=== PATIENT | female | born 1965 | race Hispanic/Latino ===

== ENCOUNTER 2022-05-25 12:35 | Emergency (ER) | payer OTHER ==
[~2022-05-25] VITALS: Ht 154.9 cm; Wt 54.4 kg
[2022-05-25] MEDS ORDERED: HYDROCODONE/APAP 5MG-325MG TAB PO PRN (13:00)
[2022-05-25] MEDS ORDERED: ACETAMINOPHEN-1 EAC4 PO (14:23)
== END 2022-05-25 14:29 | disposition home or self-care (01) ==
LOC: ER 12:44
DX: M25.562 Pain in left knee (principal); S82.002A Unspecified fracture of left patella, initial encounter for closed fracture; W01.0XXA Fall on same level from slipping, tripping and stumbling without subsequent striking against object, initial encounter; Y92.89 Other specified places as the place of occurrence of the external cause
CPT/HCPCS: 99284

== ENCOUNTER 2024-07-19 00:04 | Emergency (ER) | payer OTHER ==
[~2024-07-19] VITALS: Ht 160 cm; Wt 54.4 kg
[~2024-07-19 00:04] MED LIST: ACETAMINOPHEN-1 EAC4 PO
[2024-07-19 00:56] LABS: BASOPHILS % 0.5 % (0.0-1.0); EOSINOPHILS # (AUTO) 0.1 (0.0-0.4); EOSINOPHILS % 0.9 % (0.0-6.0); HEMATOCRIT 41.5 % (34.2-44.1); HEMOGLOBIN 13.4 g/dL (12.0-16.0); LYMPHOCYTES # (AUTO) 3.2 (1.0-3.2); LYMPHOCYTES % 49.8 % (18.0-39.1); MEAN CORPUSCULAR HEMOGLOBIN 31.5 pg (28-32); MEAN CORPUSCULAR HGB CONC 32.3 g/dL (31-35); MEAN CORPUSCULAR VOLUME 97.4 fL (81-99); MONOCYTES # (AUTO) 0.5 (0.2-0.8); MONOCYTES % 7.5 % (4.4-11.3); NEUTROPHILS # (AUTO) 2.6 (2.1-6.9); NEUTROPHILS % 41.1 % (38.7-80.0); PLATELET COUNT 267 x10e3/uL (140-360); RED BLOOD COUNT 4.26 x10e6/uL (3.6-5.1); RED CELL DISTRIBUTION WIDTH 12.9 % (11.7-14.4); WHITE BLOOD COUNT 6.38 x10e3/uL (4.8-10.8)
[2024-07-19 01:13] LABS: ALBUMIN 3.8 g/dL (3.5-5.0); ALBUMIN/GLOBULIN RATIO 1.2 (0.8-2.0); BILIRUBIN,TOTAL 0.3 mg/dL (0.2-1.2); CALCIUM 9.6 mg/dL (8.4-10.2); CREATININE, SERUM 0.84 mg/dL (0.57-1.11); TOTAL PROTEIN 7.1 g/dL (6.5-8.1)
[2024-07-19] MEDS ORDERED: IOPAMIDOL 370 MG/ML 100 ML INFUS..BTL INJ ONE (01:23)
[2024-07-19 01:32] LABS: CLARITY,URINE CLEAR (CLEAR); COLOR,URINE YELLOW (YELLOW); GLUCOSE, URINE NEGATIVE (NEGATIVE); LEUKOCYTE ESTERASE ,URINE SMALL (NEGATIVE); NITRITE,URINE NEGATIVE (NEGATIVE); PH,URINE 8.5 (5 - 7); PROTEIN,URINE DIPSTICK NEGATIVE (NEGATIVE)
[2024-07-19 01:33] LABS: BILIRUBIN,URINE NEGATIVE (NEGATIVE); KETONES,URINE NEGATIVE (NEGATIVE); URINE UROBILINOGEN 1 mg/dL (0.2 - 1)
[2024-07-19 02:03] LABS: BACTERIA,URINE MANY /HPF; RBC,URINE 0-5 /HPF (0-5); WBC,URINE (MAN) 0-5 /HPF (0-5)
[2024-07-19 02:04] LABS: EPITHELIAL CELLS,URINE MODERATE /LPF
[2024-07-19] MEDS ORDERED: DICYCLOMINE HCL10 MG PO (02:36)
[2024-07-19] MEDS ORDERED: PROTONIX20 MG PO (02:36)
[2024-07-19 02:40] VITALS: PULSE 81; RESP 16; TEMP 98; O2SAT 100
== END 2024-07-19 02:43 | disposition home or self-care (01) ==
LOC: ER 00:10
DX: R10.12 Left upper quadrant pain (principal); K76.0 Fatty (change of) liver, not elsewhere classified
CPT/HCPCS: 36415; 74177; 80053; 81001; 83690; 85025; 99284; Q9967

== ENCOUNTER 2024-11-09 18:57 | Emergency (ER) | payer OTHER ==
[~2024-11-09] VITALS: Ht 160 cm; Wt 54.4 kg
[~2024-11-09 18:57] MED LIST changes: +DICYCLOMINE HCL10 MG PO; +PROTONIX20 MG PO
[2024-11-09 19:21] VITALS: PULSE 79; RESP 16; TEMP 97.9
[2024-11-09] MEDS: KETOROLAC TROMETHAMINE 60 MG/2 ML VIAL IM ONE (19:29)
[2024-11-09] MEDS: ORPHENADRINE CITRATE 30 MG/ML VIAL IM ONE (19:29)
[2024-11-09] MEDS ORDERED: CYCLOBENZAPRINE5 MG PO (20:08)
[2024-11-09] MEDS ORDERED: NAPROSYN500 MG PO (20:08)
[2024-11-09 21:13] VITALS: BP 131/72; PULSE 79; RESP 18; TEMP 98; O2SAT 98
== END 2024-11-09 21:14 | disposition home or self-care (01) ==
LOC: ER 19:18
DX: M25.511 Pain in right shoulder (principal); S46.811A Strain of other muscles, fascia and tendons at shoulder and upper arm level, right arm, initial encounter; M62.838 Other muscle spasm
CPT/HCPCS: 73030; 99283; J1885; J2360